=== PATIENT | female | born 1975 ===

== ENCOUNTER 2019-07-31 08:15 | Outpatient (CLI) | payer OTHER ==
[~2019-07-31 08:15] MED LIST: ALBU2TAB PO; ALPR0.257 PO; BUDE10.2 INJ; CYCL-259 PO; CYCL5TAB PO; DIAZ10TA PO; DIAZ2TAB3 PO; DIAZ5TAB PO; LAMO100T8 PO; LAMO25TA52 PO; NORT10CA PO; NORT50CA52 PO; OXYC15TA PO; OXYC5TAB3 PO; P EP PO; PRED5TAB27 PO; PREG200C PO; PREG25CA PO; RIZA10TA5 PO; SIMV5TAB PO; TOPI100T8 PO; TOPI15CA10 PO; ZOLP10TA PO
== END 2019-07-31 23:59 | disposition home or self-care (01) ==
LOC: CFH 08:15
PROVIDERS: ATTEND Student in an Organized Health Care Education/Training Program
DX: M16.11 Unilateral primary osteoarthritis, right hip (principal); M43.26 Fusion of spine, lumbar region; T84.031A Mechanical loosening of internal left hip prosthetic joint, initial encounter; Z96.642 Presence of left artificial hip joint
CPT/HCPCS: 72192

== ENCOUNTER 2019-08-09 08:46 | Outpatient (CLI) | payer OTHER ==
[2019-08-09 10:20] LABS: HCT (SEDRATE) 42.6 % (34.6-47.8)
[2019-08-09 10:21] LABS: ALBUMIN 3.2 g/dL (3.4-5.0); ANION GAP 5 mmol/L (5-15); BASOPHILS # (AUTO) 0.04 x10^3/uL (0-0.1); BASOPHILS % (AUTO) 1 % (0-1); C-REACTIVE PROTEIN, QUANT 0.02 mg/dL (0.02-0.49); CALCIUM 8.3 mg/dL (8.5-10.1); CHLORIDE 111 mmol/L (98-107); EOSINOPHILS # (AUTO) 0.12 x10^3/uL (0-0.4); EOSINOPHILS % (AUTO) 2 % (1-7); LYMPHOCYTES # (AUTO) 1.74 x10^3/uL (1-3.4); LYMPHOCYTES % (AUTO) 33 % (22-44); MD NO; MEAN CORPUSCULAR HEMOGLOBIN 30.6 pg (27.0-34.8); MEAN CORPUSCULAR HGB CONC 33.5 g/dL (32.4-35.8); MEAN CORPUSCULAR VOLUME 91.4 fL (80-100); MEAN PLATELET VOLUME 8.5 fL (7.4-10.4); MONOCYTES # (AUTO) 0.51 x10^3/uL (0.2-0.8); MONOCYTES % (AUTO) 10 % (2-9); NEUTROPHILS # (AUTO) 2.83 x10^3/uL (1.8-6.8); NEUTROPHILS % (AUTO) 54 % (42-75); PLATELET COUNT 201 x10^3/uL (130-400); RED BLOOD COUNT 4.65 x10^6/uL (3.82-5.3); RED CELL DISTRIBUTION WIDTH 13.9 % (9.6-15.2)
[2019-08-09 10:48] LABS: % IRON SATURATION 18 % (20-55); ALANINE AMINOTRANSFERASE 30 U/L (12-78); ALKALINE PHOSPHATASE 60 U/L (45-117); BILIRUBIN,TOTAL 0.2 mg/dL (0.2-1.0); CREATINE KINASE, TOTAL 113 U/L (26-192); CREATININE 0.83 mg/dL (0.55-1.02); FOLATE LEVEL 14.4 ng/mL (3.1-17.5); IRON LEVEL 70 mcg/dL (50-170); TOTAL IRON BINDING CAPACITY 391 mcg/dL (250-450); TOTAL PROTEIN 6.9 g/dL (6.4-8.2)
== END 2019-08-09 23:59 | disposition home or self-care (01) ==
LOC: RAD 08:46
PROVIDERS: ATTEND Student in an Organized Health Care Education/Training Program
DX: M25.551 Pain in right hip (principal); M25.552 Pain in left hip
CPT/HCPCS: 36415; 78315; 80053; 82306; 82550; 82607; 82746; 83540; 83550; 83690; 84443; 85025; 85651; 86140; A9503